=== PATIENT | female | born 1980 | race African-American/Black ===

== ENCOUNTER 2017-09-09 19:09 | Emergency (ER) | payer BC ==
[2017-09-10 01:25] LABS: ADD MAN DIFF? NO
[2017-09-10] MEDS: morphine 4 MG/ML VIAL IV (01:27)
[2017-09-10 01:32] LABS: WHITE BLOOD COUNT 7.5 10^3/ul (4.8-10.8)
[2017-09-10 01:32] LABS: ABNORMAL IP MESSAGE 1; BASOPHIL # 0.1 10^3/ul (0.0-0.1); BASOPHILS % 0.7 % (0.0-2.0); EOSINOPHILS # 0.1 10^3/ul (0.0-0.5); EOSINOPHILS % 1.2 % (0.0-7.0); HEMATOCRIT 27.8 % (37.0-47.0); HEMOGLOBIN 10.1 g/dl (12.0-16.0); LYMPHOCYTES # 2.3 10^3/ul (0.8-2.9); MEAN CORPUSCULAR HEMOGLOBIN 26.9 pg (29.0-33.0); MEAN CORPUSCULAR HGB CONC 36.3 g/dl (32.0-37.0); MEAN CORPUSCULAR VOLUME 74.1 fl (82.0-101.0); MEAN PLATELET VOLUME 11.5 fl (7.4-10.4); MONOCYTE # 0.4 10^3/ul (0.3-0.9); MONOCYTES % 5.3 % (0.0-11.0); NEUTROPHIL # 4.7 10^3/ul (1.6-7.5); NEUTROPHILS % 62.4 % (39.0-77.0); PLATELET COUNT 171 10^3/UL (140-415); RED BLOOD COUNT 3.75 10^6/ul (4.20-5.40); RED CELL DISTRIBUTION WIDTH 18.4 % (11.5-14.5); RETICULOCYTE COUNT # 0.119 X10^6 (0.020-0.110); RETICULOCYTE COUNT % 3.2 % (0.5-1.5); RETICULOCYTE RBC 3.75
[2017-09-10 01:37] LABS: POSITIVE DIFF @See below
[2017-09-10 01:55] LABS: ALANINE AMINOTRANSFERASE 26 IU/L (13-69); ALBUMIN 4.5 g/dl (3.3-4.9); ALBUMIN/GLOBULIN RATIO 1.32; ALKALINE PHOSPHATASE 76 IU/L (42-121); ANION GAP 17 (8-16); ASPARTATE AMINO TRANSFERASE 32 IU/L (15-46); BILIRUBIN,INDIRECT 0.8 mg/dl (0-1.1); BILIRUBIN,TOTAL 0.8 mg/dl (0.2-1.3); BLOOD UREA NITROGEN 14 mg/dl (7-20); CALCIUM 9.1 mg/dl (8.4-10.2); CARBON DIOXIDE 25 mmol/L (21-31); CHLORIDE 108 mmol/L (97-110); CREATININE 1.12 mg/dl (0.44-1.00); GLUCOSE 81 mg/dl (70-220); LACTATE DEHYDROGENASE 705 IU/L (313-618); POTASSIUM 3.7 mmol/L (3.5-5.1); SODIUM 146 mmol/L (135-144); TOTAL PROTEIN 7.9 g/dl (6.1-8.1)
[2017-09-10] MEDS: SOD CHLORIDE 0.9% 1,000 ML IV (01:55)
[2017-09-10] MEDS: ONDANSETRON (ODT) 4 MG TAB ODT (02:02)
[2017-09-10] MEDS: DIPHENHYDRAMINE 50 MG INJ IV (02:03)
[2017-09-10] MEDS: LABETALOL 200 MG TAB PO (02:22)
[2017-09-11 13:27] LABS: HAPTOGLOBIN <15 mg/dL (43-212)
== END 2017-09-10 03:44 | disposition home or self-care (01) ==
LOC: FTE 09-10 03:44
DX: D57.219 Sickle-cell/Hb-C disease with crisis, unspecified (principal); I10 Essential (primary) hypertension
CPT/HCPCS: 36415; 71045; 80053; 83010; 83615; 84484; 85025; 85045; 93005; 96374; 96375; 99285-25